=== PATIENT | male | born 1940 | race African-American/Black ===

== ENCOUNTER 2017-04-21 15:54 | Emergency (ER) | payer MEDICARE ==
[~2017-04-21] VITALS: Ht 175.3 cm; Wt 86.2 kg
[2017-04-21 16:00] VITALS: BP 123/94
[2017-04-21 17:07] LABS: EOSINOPHILS % (AUTO) 1.4 % (0.0-3.0); LYMPHOCYTES % (AUTO) 24.4 % (20.0-45.0); MEAN CORPUSCULAR HEMOGLOBIN 30.8 PG (27.0-31.0); MEAN CORPUSCULAR HGB CONC 33.6 G/DL (32.0-36.0); MEAN CORPUSCULAR VOLUME 92 FL (80-99); MEAN PLATELET VOLUME 10.7 FL (6.5-10.1); MONOCYTES % (AUTO) 7.7 % (1.0-10.0); NEUTROPHILS % (AUTO) 65.5 % (45.0-75.0); PLATELET COUNT 182 K/UL (150-450); RED BLOOD COUNT 3.32 M/UL (4.70-6.10); RED CELL DISTRIBUTION WIDTH 16.3 % (11.6-14.8); WHITE BLOOD COUNT 5.6 K/UL (4.8-10.8)
[2017-04-21 17:30] LABS: TROPONIN I < 0.30 ng/mL (<=0.30)
[2017-04-21 17:33] LABS: ALANINE AMINOTRANSFERASE 10 U/L (3-41); ALBUMIN/GLOBULIN RATIO 1.2 (1.0-2.7); ANION GAP 13 (5-15); ASPARTATE AMINO TRANSFERASE 17 U/L (5-40); CALCIUM 11.3 mg/dL (8.6-10.2); CARBON DIOXIDE 28 mEQ/L (20-30); CHLORIDE 99 mEQ/L (98-107); CREATININE 1.8 mg/dL (0.7-1.2); HEMOLYSIS 11; POTASSIUM 3.4 mEQ/L (3.4-4.9); SODIUM 140 mEQ/L (135-145); TOTAL PROTEIN 6.9 g/dL (6.6-8.7)
--- NOTE | 2017-04-21 17:35 | Diagnostic Imaging Report ---
Indication: Shortness of breath Technique: One view of the chest Comparison: none Findings: The heart is borderline enlarged. There is mild interstitial congestion. No focal airspace consolidation. No effusions. There are degenerative changes of the thoracic spine Impression: Borderline cardiomegaly Mild interstitial congestion
[2017-04-21 17:43] LABS: CKMB < 1.5 ng/mL (< 6.7)
[2017-04-21 18:35] VITALS: BP 135/69
[2017-04-21] MEDS ORDERED: VITAMIN B COMP1 EAC5 PO (19:19)
[2017-04-21] MEDS ORDERED: ASPIRIN81 MG ORAL (19:19)
[2017-04-21] MEDS ORDERED: ASPIR 8181 MG ORAL (19:19)
[2017-04-21] MEDS ORDERED: CALCIUM CITRAT250 M1 PO (19:19)
[2017-04-21] MEDS ORDERED: ATORVASTATIN CA40 MG ORAL (19:19)
[2017-04-21] MEDS ORDERED: ENALAPRIL MALE2.5 MG ORAL (19:21)
[2017-04-21] MEDS ORDERED: [UNRECOGNIZED DRUG - CODE] PO (19:22)
[2017-04-21] MEDS ORDERED: NIFEDIPINE ER30 M2 ORAL (19:22)
[2017-04-21] MEDS ORDERED: OXYBUTYNIN CHLO15 MG PO (19:22)
[2017-04-21] MEDS ORDERED: FERROUS SULFAT325 MG ORAL (19:22)
[2017-04-21] MEDS ORDERED: PLAVIX75 MG ORAL (19:29)
[2017-04-21] MEDS ORDERED: TORSEMIDE10 MG PO (19:30)
[2017-04-21] MEDS ORDERED: GLUCERNA237 ML PO (19:30)
[2017-04-21] MEDS ORDERED: KEPPRA500 M4 ORAL (19:30)
[2017-04-21] MEDS ORDERED: ACETAMINOPHEN325 M1 ORAL (19:30)
[2017-04-21] MEDS ORDERED: METOPROLOL TART50 MG ORAL (19:30)
[2017-04-21] MEDS ORDERED: VITAMIN C500 M1 ORAL (19:30)
[2017-04-21] MEDS ORDERED: GLUCOPHAGE850 MG ORAL (19:30)
[2017-04-21] MEDS ORDERED: ARMOUR THYROID30 MG ORAL (19:30)
[2017-04-21 20:51] LABS: APPEARANCE,URINE CLEAR; KETONES,URINE NEGATIVE (NEGATIVE); LEUKOCYTE ESTERASE ,URINE NEGATIVE (NEGATIVE); NITRITE,URINE NEGATIVE (NEGATIVE); PH,URINE 7 (4.5-8.0); PROTEIN,URINE NEGATIVE (NEGATIVE); UROBILINOGEN,URINE NORMAL MG/DL (0.0-1.0)
[2017-04-21 21:33] LABS: ALANINE AMINOTRANSFERASE 8 U/L (3-41); ANION GAP 10 (5-15); ASPARTATE AMINO TRANSFERASE 14 U/L (5-40); CALCIUM 10.8 mg/dL (8.6-10.2); CARBON DIOXIDE 28 mEQ/L (20-30); CHLORIDE 104 mEQ/L (98-107); CREATININE 1.4 mg/dL (0.7-1.2); HEMOLYSIS 3; POTASSIUM 3.7 mEQ/L (3.4-4.9); SODIUM 142 mEQ/L (135-145); TOTAL PROTEIN 6.5 g/dL (6.6-8.7)
[2017-04-21 22:00] VITALS: BP 136/74
[2017-04-21 22:05] VITALS: BP 136/74
--- NOTE | 2017-04-21 22:47 | Emergency Room Report ---
History of Present Illness General Chief Complaint: Pain Source: Family Member Present Illness HPI 76-year-old F presents to ED for evaluation. Family at bedside states that patient has been complaining of leg pain for one. Legs to appear swollen. Pain is a 7/10, sharp, nonradiating. Denies chest pain or shortness of breath. Family is concerned because patient appears "more altered" than usual. Patient states she feels okay. Denies fevers or chills. Denies headache. No other aggravating or relieving factors. Denies any other associated symptoms Allergies: Coded Allergies: METOCLOPRAMIDE (Verified Allergy, Unknown, 04/21/17) Patient History Past Medical History: DM, HTN, GERD, CVA/TIA Past Surgical History: other - exlap Pertinent Family History: none Social History: Denies: smoking, alcohol use, drug use Immunizations: UTD Reviewed Nursing Documentation: PMH: Agreed, PSxH: Agreed Nursing Documentation-PMH Past Medical History: No History, Except For Hx Hypertension: Yes Hx Diabetes: Yes Hx Gastrointestinal Problems: Yes - Bowel obstruction surgery February 2017; Acid reflux Hx Cerebrovascular Accident: Yes Review of Systems All Other Systems: negative except mentioned in HPI Physical Exam Vital Signs Date Time Temp Pulse Resp B/P (MAP) Pulse Ox O2 Delivery O2 Flow Rate FiO2 04/21/17 15:57 97.3 89 19 146/75 100 Room Air Sp02 EP Interpretation: reviewed, normal General Appearance: no apparent distress, alert, GCS 15, non-toxic Head: normocephalic, atraumatic Eyes: bilateral eye normal inspection, bilateral eye PERRL ENT: hearing grossly normal, normal pharynx, no angioedema, normal voice Neck: full range of motion, supple/symm/no masses Respiratory: chest non-tender, lungs clear, normal breath sounds, speaking full sentences Cardiovascular #1: regular rate, rhythm, no edema Cardiovascular #2: 2+ carotid (R), 2+ carotid (L), 2+ radial (R), 2+ radial (L) , 2+ dorsalis pedis (R), 2+ dorsalis pedis (L) Gastrointestinal: normal bowel sounds, non tender, soft, non-distended, no guarding, no rebound Rectal: deferred Genitourinary: normal inspection, no CVA tenderness Musculoskeletal: back normal, gait/station normal, normal range of motion, tender - bilateral LE Neurologic: alert, oriented x3, responsive, motor strength/tone normal, sensory intact, speech normal Psychiatric: judgement/insight normal, memory normal, mood/affect normal, no suicidal/homicidal ideation Reflexes: 3+ bicep (R), 3+ bicep (L), 3+ tricep (R), 3+ tricep (L), 3+ knee (R) , 3+ knee (L) Skin: normal color, no rash, warm/dry, well hydrated Lymphatic: no adenopathy Medical Decision Making Diagnostic Impression: Primary Impression: Dehydration Additional Impression: Leg pain, bilateral ER Course Hospital Course 76-year-old female presents to ED with leg pain and swelling. Appears more altered than usual Differential diagnoses include: Pneumonia, UTI, sepsis, dehydration, [place]/ unstable angina, CVA/TIA Clinical course Patient placed on stretcher. On cardiac rehabilitation program director with stable vitals are ED course. After initial history and physical, I ordered labs, IV fluids, EKG, chest x-ray, blood cultures, UA. I ordered CT head, CT Cspine, Dopplers of LE Labs - Cr 1.8, no leukocytosis, troponins negative, UA negative EKG-normal sinus rhythm no acute ischemic changes interpreted by me CXR - no acute process. cardiomegaly CT head shows multiple old infarcts but no acute process CT C-spine shows reversal of cervical lordosis consistent with muscle spasms Dopplers of lower extremity show no evidence of DVT Family has lab work for the patient from previous hospitalizations and just 5 days ago patient had a creatinine of 1.0. I discussed the option of admitting the patient for dehydration and IV hydration Family stated they would prefer to take the patient home. Patient states she preferred to be discharged. Patient given IV fluids Chemistry shows creatinine of 1.4. Given that labs are improving and family wishes to discharge the patient, I agreed to patient discharge. Encourage the importance of oral hydration. recommend close followup with PMD I feel this is a highly complex case requiring extensive working including EKG/ Rhythm strip, Xray/CT/US, Blood/urine lab work, repeat exams while in ED, and administration of strong opiates/narcotics for pain control, admission to hospital or close patient follow up. Diagnosis - dehydration, bilateral leg pain Stable and discharged to home. Continue oral hydration. Followup with PMD. Return to ED if symptoms recur or worsen Labs Test 04/21/17 16:30 04/21/17 20:07 04/21/17 20:50 White Blood Count 5.6 K/UL (4.8-10.8) Red Blood Count 3.32 M/UL (4.70-6.10) Hemoglobin 10.2 G/DL (14.2-18.0) Hematocrit 30.4 % (42.0-52.0) Mean Corpuscular Volume 92 FL (80-99) Mean Corpuscular Hemoglobin 30.8 PG (27.0-31.0) Mean Corpuscular Hemoglobin Concent 33.6 G/DL (32.0-36.0) Red Cell Distribution Width 16.3 % (11.6-14.8) Platelet Count 182 K/UL (150-450) Mean Platelet Volume 10.7 FL (6.5-10.1) Neutrophils (%) (Auto) 65.5 % (45.0-75.0) Lymphocytes (%) (Auto) 24.4 % (20.0-45.0) Monocytes (%) (Auto) 7.7 % (1.0-10.0) Eosinophils (%) (Auto) 1.4 % (0.0-3.0) Basophils (%) (Auto) 1.0 % (0.0-2.0) Sodium Level 140 mEQ/L (135-145) 142 mEQ/L (135-145) Potassium Level 3.4 mEQ/L (3.4-4.9) 3.7 mEQ/L (3.4-4.9) Chloride Level 99 mEQ/L (98-107) 104 mEQ/L (98-107) Carbon Dioxide Level 28 mEQ/L (20-30) 28 mEQ/L (20-30) Anion Gap 13 (5-15) 10 (5-15) Blood Urea Nitrogen 22 mg/dL (7-23) 20 mg/dL (7-23) Creatinine 1.8 mg/dL (0.7-1.2) 1.4 mg/dL (0.7-1.2) Estimat Glomerular Filtration Rate mL/min (>60) mL/min (>60) Glucose Level 119 mg/dL (74-106) 109 mg/dL (74-106) Lactic Acid Level 1.40 mmol/L (0.66-2.22) Calcium Level 11.3 mg/dL (8.6-10.2) 10.8 mg/dL (8.6-10.2) Total Bilirubin 0.3 mg/dL (0.0-1.2) 0.3 mg/dL (0.0-1.2) Aspartate Amino Transf (AST/SGOT) 17 U/L (5-40) 14 U/L (5-40) Alanine Aminotransferase (ALT/SGPT) 10 U/L (3-41) 8 U/L (3-41) Alkaline Phosphatase 124 U/L (40-129) 121 U/L (40-129) Total Creatine Kinase 10 U/L (38-174) Creatine Kinase MB < 1.5 ng/mL (< 6.7) Creatine Kinase MB Relative Index Troponin I < 0.30 ng/mL (<=0.30) Total Protein 6.9 g/dL (6.6-8.7) 6.5 g/dL (6.6-8.7) Albumin 3.8 g/dL (3.5-5.2) 3.4 g/dL (3.5-5.2) Globulin 3.1 g/dL 3.1 g/dL Albumin/Globulin Ratio 1.2 (1.0-2.7) 1.0 (1.0-2.7) Urine Color Pale yellow Urine Appearance Clear Urine pH 7 (4.5-8.0) Urine Specific [place] 1.005 (1.005-1.035) Urine Protein Negative (NEGATIVE) Urine Glucose (UA) Negative (NEGATIVE) Urine Ketones Negative (NEGATIVE) Urine Occult Blood Negative (NEGATIVE) Urine Nitrite Negative (NEGATIVE) Urine Bilirubin Negative (NEGATIVE) Urine Urobilinogen Normal MG/DL (0.0-1.0) Urine Leukocyte Esterase Negative (NEGATIVE) EKG Diagnostic Results Rate: normal Rhythm: NSR ST Segments: no acute changes ASA given to the pt in ED: No Rhythm Strip Diag. Results EP Interpretation: yes Rhythm: NSR, no PVC's, no ectopy Chest X-Ray Diagnostic Results Chest X-Ray Diagnostic Results : Chest X-Ray Ordered: Yes # of Views/Limited/Complete: 1 View Indication: Shortness of Breath EP Interpretation: Yes Interpretation: no consolidation, no effusion, no pneumothorax, no acute cardiopulmonary disease, other - cardiomegaly Impression: Other - cardiomegaly Electronically Signed by: Electronically signed by Junito Hernandez MD CT/MRI/US Diagnostic Results CT/MRI/US Diagnostic Results #1: Imaging Test Ordered: CT Head Impression evidence of old CVA. no acute process CT/MRI/US Diagnostic Results #2: Imaging Test Ordered: CT C spine Impression reversal of cervical lordosis. no acute fx CT/MRI/US Diagnostic Results #3: Imaging Test Ordered: Doppler US LEs Impression no evidence of DVT in bilateral LEs Last Vital Signs Date Time Temp Pulse Resp B/P (MAP) Pulse Ox O2 Delivery O2 Flow Rate FiO2 04/21/17 18:35 97.1 81 19 135/69 100 Room Air Status: improved Disposition: HOME, SELF-CARE Condition: Stable Patient Instructions: Dehydration, Elderly, [id number] JUNITO HERNANDEZ M.D. Apr 21, 2017 22:47
--- NOTE | 2017-04-22 10:50 | Diagnostic Imaging Report ---
Indication: Neck pain. Technique: Continuous helical imaging of the cervical spine was obtained transaxially from the skull base to the upper thoracic spine. 2-D coronal and sagittal reformatted images were obtained. Total Dose length Product (DLP): [address] Dose Index Volume (CTDIvol): 0.15, 0.15, 70.38, 17.77 mGy Comparison: None Findings: There is no acute fracture or malalignment identified. There is no soft tissue swelling identified. There is reversal of cervical lordosis. Moderate uncovertebral arthritis is demonstrated at multiple levels. Some of the intervertebral discs show narrowing and osteophytes. Mild arterial wall calcification scattered throughout. Impression: No acute bony injury. Reversal of cervical lordosis which may be due to muscle spasm. Moderate spondylosis Atherosclerotic disease The CT scanner at [facility] is accredited by the [employer] and the scans are performed using dose optimization techniques as appropriate to a performed exam including Automatic Exposure control.
--- NOTE | 2017-04-22 10:51 | Diagnostic Imaging Report ---
Indication: Headache Technique: Contiguous 5 mm thick transaxial imaging of the head obtained in a Siem[employer] Sensation [address] scanner. Soft tissue and bone windows generated. Total Dose length Product (DLP): Refer to CT cervical spine mGycm CT Dose Index Volume (CTDIvol): Refer to CT cervical spine mGy Comparison: none Findings: There is mild prominence of the ventricles, basal cisterns, and cerebral sulci consistent with atrophy. Mild, nonspecific, white matter hypoattenuation is noted throughout the brain consistent with chronic small vessel disease. Encephalomalacia noted within portions of both frontal lobes and the right occipital lobe consistent with old infarcts. There is no midline shift, edema, acute hemorrhage, mass effect, or abnormal extra-axial fluid collections. Bones and extra osseous soft tissues are unremarkable. Impression: No acute intracranial bleed, mass effect or edema. Multiple old infarcts. Mild atrophy of the brain. Nonspecific white matter hypoattenuation probably due to chronic small vessel disease. The CT scanner at [facility] is accredited by the [employer] and the scans are performed using dose optimization techniques as appropriate to a performed exam including Automatic Exposure control.
--- NOTE | 2017-04-23 15:54 | Cardiology Report ---
APPROVED REPORT EKG Measurement Heart [id number] Normal sinus rhythm Normal ECG
== END 2017-04-21 22:05 | disposition home or self-care (01) ==
LOC: EMR 16:30
DX: E86.0 Dehydration (principal); M79.605 Pain in left leg; M79.604 Pain in right leg; I10 Essential (primary) hypertension; E11.9 Type 2 diabetes mellitus without complications; Z86.73 Personal history of transient ischemic attack (TIA), and cerebral infarction without residual deficits; K21.9 Gastro-esophageal reflux disease without esophagitis; Z88.8 Allergy status to other drugs, medicaments and biological substances; M62.838 Other muscle spasm; I51.7 Cardiomegaly; M47.892 Other spondylosis, cervical region; I70.90 Unspecified atherosclerosis; G31.9 Degenerative disease of nervous system, unspecified
CPT/HCPCS: 36415; 70450; 71010; 72125; 80053; 81003; 82550; 82553; 83605; 84484; 85025; 87040; 93005; 93970; 96374; 99284